=== PATIENT | male | born 1990 | race African-American/Black ===

== ENCOUNTER 2018-07-28 13:15 | Emergency (ER) | payer OTHER ==
[2018-07-28 13:30] VITALS: BP 117/81
--- NOTE | 2018-07-28 13:32 | ED Physician Documentation ---
Abscess - HPI Stated Complaint: L facial pain Chief Complaint: Abscess Additional Information: Patient presents to ED with a 2 week history of left facial abscess. Patient states he has had the "abscess" for 2 years but in the past 2 weeks it has become painful, more swollen, and redness appeared on his skin. He states he has not been on antibiotics at all during the past 2 years. Onset: days ago (14) Timing: still present Duration: worse Location: other (left face) Quality: painful Identified Cause?: Yes Where: other (retirement) Context: Medication Exposure: none Context: Food Exposure: none Context: Other Exposure: denies: bee sting, wasp sting, ant bite, spider bite, poison álvaro, poison oak, infectious illness, soap, detergent, other Further Comments: no - ROS CONST: denies: fever, chills CVS/RESP: denies: chest pain, shortness of breath EYES/ENT: nasal drainage (left nares). denies: sore throat GI/: denies: abdominal pain, vomiting, nausea MS/SKIN/LYMPH: none NEURO/PSYCH: denies: headache - PAST HX Past History: none Other History: none Surgeries/Procedures: No Allergies/Adverse Reactions: Allergies Allergy/AdvReac Type Severity Reaction Status Date / Time No Known Allergies Allergy Verified 07/28/18 13:20 Home Medications: Ambulatory Orders Medication Instructions Recorded Amoxicillin/Potassium Clav 1 each PO BID #28 tablet 07/28/18 [Augmentin 875-125 Tablet] - SOCIAL HX Smoking History: non-smoker Alcohol Use: none Drug Use: none - FAMILY HX Family History: none - VITAL SIGNS Vital Signs: Vital Signs Temp Pulse Resp BP Pulse Ox 98.8 F 88 18 117/81 97 07/28/18 13:15 07/28/18 13:15 07/28/18 13:15 07/28/18 13:15 07/28/18 13:15 - REVIEWED ASSESSMENTS Nursing Assessment Reviewed: Yes Vitals Reviewed: Yes Procedures Site: Left face Blade Size: 11 I & D Procedure: betadine prep ED Results Lab/Radiology - Lab Results Lab Results: Lab Results 07/28/18 07/28/18 13:40 13:40 WBC 8.90 K/ul K/ul (4.00-12.00) RBC 5.07 M/ul M/ul (3.90-5.20) Hgb 15.2 g/dL g/dL (12.0-18.0) Hct 45.8 % % (37.0-53.0) MCV 90.0 fl fl (80.0-100.0) MCH 30.0 pg pg (28.0-34.0) MCHC 33.1 g/dL g/dL (30.0-36.0) RDW 12.3 % % (11.3-14.3) Plt Count 199 K/mm3 K/mm3 (130-400) Neut % (Auto) 63.6 % % (39.0-79.0) Lymph % (Auto) 27.3 % % (16.0-50.0) [place] % (Auto) 5.3 % % (0.0-11.0) Eos % (Auto) 3.0 % % (0.0-6.8) Baso % (Auto) 0.8 (0.0-1.5) Neut # (Auto) 5.7 # k/uL # k/uL (1.4-7.7) Lymph # (Auto) 2.4 # k/uL # k/uL (0.6-4.0) [place] # (Auto) 0.5 # k/uL # k/uL (0.0-0.9) Eos # (Auto) 0.3 # k/uL # k/uL (0.0-0.6) Baso # (Auto) 0.1 # k/uL # k/uL (0.0-0.5) Sodium 141 mmol/L mmol/L (136-145) Potassium 4.5 mmol/L mmol/L (3.5-5.1) Chloride 102 mmol/L mmol/L (98-107) Carbon Dioxide 24 mmol/L mmol/L (22-30) BUN 11 mg/dL mg/dL (9-20) Creatinine 0.70 mg/dL mg/dL (0.66-1.25) Estimated Creat Clear 194 Est GFR ( Amer) > 60 (60 - ) Est GFR (Non-Af Amer) > 60 (60 - ) Glucose 95 mg/dL mg/dL (74-106) Calcium 9.4 mg/dL mg/dL (8.4-10.2) Total Bilirubin 0.5 mg/dL mg/dL (0.2-1.3) AST 32 U/L U/L (15-46) ALT 45 U/L U/L (13-69) Alkaline Phosphatase 124 U/L U/L (38-126) Total Protein 8.4 g/dL H g/dL (6.3-8.2) Albumin 4.6 g/dL g/dL (3.5-5.0) - Radiology Radiology Impressions: CT facial bones with contrast. History: LEFT FACIAL ABSCESS PT STATES ABSCESS HAS BEEN PRESENT FOR 2 YRS, PAIN AND SWELLING FOR THE PAST 2 WKS, NO KNOWN INJURY OR CAUSE transfer text. Technique: Transaxial computed tomographic images of the face were obtained following the uneventful administration of intravenous contrast according to standard protocol. Findings: There is a peripherally enhancing fluid collection within the left malar soft tissue measuring 2.3 x 2.5 by 2.9 cm. There is adjacent stranding within the subcutaneous soft tissue of the left face. There is no evidence of root abscess or dental melvin in the adjacent teeth. The osseous structures of the face are intact. There is mucosal thickening in the paranasal sinuses with small amount of fluid in the maxillary sinuses. The globes are normal. No intraconal extraconal stranding is identified. Impression: 1. Peripherally enhancing fluid collection in the left malar soft tissue measuring 2.3 x 2.5 x 2.9 cm, consistent with abscess. 2. No evidence of bone erosion or dental melvin or root abscess. 3. Paranasal sinus disease. Electronically signed on Jul 28, 2018 3:01:58 PM CDT by: Gordon Law - Orders Orders: ED Orders Category Date Time Status Place IV Lock 1T Care 07/28/18 13:[address] MAXILLOFACIAL AREA W CON Stat Exams 07/28/18 Completed CBC/PLATELET/DIFF Routine Lab 07/28/18 13:40 Completed CMP [CMP] Routine Lab 07/28/18 13:40 Completed WOUND CULTURE Stat Lab 07/28/18 Ordered Lidocaine 2% 20ml Vial [Xylocaine] Med 07/28/18 15:11 Discontinued 10 mg IP NOW ONE Vancomycin HCl [Vancocin] 1.25 gm Med 07/28/18 13:52 Discontinued 0.9 % Sodium Chloride [Normal Saline] 500 ml IV NOW cefTRIAXone SODIUM [Rocephin] Med 07/28/18 14:35 Discontinued 1 gm .ROUTE .STK-MED ONE cefTRIAXone SODIUM [Rocephin] 1 gm Med 07/28/18 13:53 Discontinued 0.9 % Sodium Chloride [Sodium Chloride] 50 ml IV NOW Abscess Physical Exam - EXAM General Appearance: no acute distress, alert Skin: warm,dry Location: face (left cheek) Character: symmetric, erythematous (3cm round) Symptoms: warmth, tenderness, swelling, induration Extremities: no edema EENT: eyes nml inspection Neck: trachea midline, stiff neck Respiratory: no resp distress, chest non-tender, breath sounds normal CVS: reg. rate & rhythm, heart sounds nml Abdomen: non-tender, nml bowel sounds. No: tenderness Neuro/Psych: oriented x3, motor nml Discharge Clincal Impression: Abscess Prescriptions: Amoxicillin/Potassium Clav [Augmentin 875-125 Tablet] 1 each PO BID #28 tablet Referrals: Spencer Denis III, MD [Primary Care Provider] - 2 Days Disposition: 01 HOME, SELF-CARE Decision to Admit: NO Date of Decison to Admit: 07/28/18 Decision Time: 17:52
[2018-07-28 13:49] LABS: BASOPHILS % 0.8 (0.0-1.5); MONOCYTES % 5.3 % (0.0-11.0); NEUTROPHILS # 5.7 # k/uL (1.4-7.7)
[2018-07-28 14:38] LABS: eGFR (Non-African) > 60
[2018-07-28] MEDS: cefTRIAXone SODIUM 1 GM VIAL ONE (15:05)
[2018-07-28] MEDS: cefTRIAXone SODIUM 1 GM in 0.9 % SODIUM CHLORIDE 50 ML IV ONE (15:05)
[2018-07-28] MEDS: VANCOMYCIN HCL 1.25 GM in 0.9 % SODIUM CHLORIDE 500 ML IV ONE (15:05)
--- NOTE | 2018-07-28 15:05 | Diagnostic Imaging Report ---
ALEJADNRINA GOODSON [facility] [id number] [facility] [address] [place] [address]. [id number] Report Submission Date: Jul 28, 2018 3:01:58 PM CDT Patient Study Name: EMILIANO GIBBONS Date: Jul 28, 2018 2:03:42 PM CDT Modality Type: CT\SR Gender: M Description: CT MAXILLOFACIAL AREA : 92 Institution: [facility] Physician: ALEJANDRINA GOODSON CT facial bones with contrast. History: LEFT FACIAL ABSCESS PT STATES ABSCESS HAS BEEN PRESENT FOR 2 YRS, PAIN AND SWELLING FOR THE PAST 2 WKS, NO KNOWN INJURY OR CAUSE transfer text. Technique: Transaxial computed tomographic images of the face were obtained following the uneventful administration of intravenous contrast according to standard protocol. Findings: There is a peripherally enhancing fluid collection within the left malar soft tissue measuring 2.3 x 2.5 by 2.9 cm. There is adjacent stranding within the subcutaneous soft tissue of the left face. There is no evidence of root abscess or dental melvin in the adjacent teeth. The osseous structures of the face are intact. There is mucosal thickening in the paranasal sinuses with small amount of fluid in the maxillary sinuses. The globes are normal. No intraconal extraconal stranding is identified. Impression: 1. Peripherally enhancing fluid collection in the left malar soft tissue measuring 2.3 x 2.5 x 2.9 cm, consistent with abscess. 2. No evidence of bone erosion or dental melvin or root abscess. 3. Paranasal sinus disease. Electronically signed on Jul 28, 2018 3:01:58 PM CDT by: Gordon CRUZ
[2018-07-28] MEDS: Lidocaine 2% 20ml Vial IP ONE (17:41)
== END 2018-07-28 18:12 | disposition home or self-care (01) ==
LOC: ED 13:15
DX: L02.01 Cutaneous abscess of face (principal)
CPT/HCPCS: 70487; 80053; 85025; 87070; J0696; J3370; J7060; 10060; 96365; 96366; 96367; Q9967; S1016